=== PATIENT | female | born 1945 | race Caucasian/White ===

== ENCOUNTER 2017-02-09 21:57 | Inpatient (IN) | payer OTHER ==
[~2017-02-09] VITALS: Ht 154.9 cm; Wt 57.2 kg
--- NOTE | ~2017-02-09 | HC ---
[facility] [place] [address] CONSULTATION Name: RACHELLE ROGEL Room #: 439-P ADM IN M.R.#: [id number] Admission: 02/09/17 Attend Phys: Rachid Pemberton MD Discharge: Date of : 41 Report #: [id number] THIS REPORT FOR: //name// CC: Shannon Hair DATE OF SERVICE: 02/10/2017 CONSULTING PHYSICIAN: Gamal Hair MD REASON FOR CONSULTATION: Small-bowel obstruction. HISTORY OF PRESENT ILLNESS: This is a 71-year-old female patient who was seen in [place]'s emergency room with abdominal pain, nausea, and vomiting. The patient recently had similar pain without the nausea and vomiting last Thursday, lasting 2-3 days and subsiding. She was seen in the emergency room with her current complaints where she underwent a CT of the abdomen and pelvis showing changes consistent with a small-bowel obstruction with a transition point in the pelvis, most likely due to adhesions. A sigmoid colon diverticulosis was also identified without acute diverticulitis changes. I have been asked to see the patient for further evaluation and treatment. Since her admission last night, a nasogastric tube was placed and the patient reports improved abdominal pain, denies nausea, vomiting, fever or chills, and has passed flatus on 2 separate occasions earlier this morning. PAST MEDICAL HISTORY: Hypertension and tachycardia. The patient has undergone laparoscopic cholecystectomy, hemorrhoidectomy and gum surgery in the past. MEDICATIONS: Atenolol 25 mg p.o. daily. ALLERGIES: No known drug allergies. FAMILY HISTORY: Reviewed and noncontributory to this hospitalization. SOCIAL HISTORY: The patient denies use of tobacco, alcohol, or illicit drugs. She is accompanied by her . REVIEW OF SYSTEMS: As per history of present illness. In addition: GENERAL: The patient denies fever or chills. She reports mild weight loss with poor appetite. HEENT: Denies changes in taste, vision, hearing, or smell. RESPIRATORY: Denies shortness of breath, COPD, or asthma. CARDIOVASCULAR: Denies chest pain or palpitations. GASTROINTESTINAL: As per history of present illness. Denies bright red blood per rectum. Had multiple colonoscopies in the past, but denies colonic [facility] [address] [place] [address] CONSULTATION Name: RACHELLE ROGEL YUKO Room #: 439-P [facility] IN M.R.#: [id number] Admission: 02/09/17 Attend Phys: Rachid Pemberton MD Discharge: Date of : 41 Report #: [id number] polyposis. GENITOURINARY: Denies dysuria, urgency, increased urinary frequency, or hematuria. MUSCULOSKELETAL: Denies myalgia, arthralgia, or arthritis. NEUROLOGIC: Denies headaches, numbness, or tingling. PSYCHIATRIC: Denies depression, anxiety, or suicidal ideations. SKIN AND INTEGUMENTARY: Denies new skin lesions, rashes, or moles. ENDOCRINE: Denies polydipsia, polyuria, heat or cold intolerance. HEMATOLOGIC: Denies easy bleeding, bruising, or anemia. All other review of systems is negative. PHYSICAL EXAMINATION: VITAL SIGNS: Temperature 98.6, blood pressure 133/75, pulse 78, and respirations 20. GENERAL: This is a well-developed, well-nourished, friendly and cooperative 71-year-old female patient, in no acute distress. HEENT: Atraumatic, normocephalic with moist mucosal membranes. Oropharynx is clear. She has no scleral icterus. A nasogastric tube is in place. NECK: Supple, no appreciable lymphadenopathy. Trachea is midline. CHEST: Clear bilaterally. No crackles or wheezes. CARDIOVASCULAR: Regular rate and rhythm, S1, S2. ABDOMEN: Soft and nondistended with minimal tenderness to palpation in the lower abdomen. She has no rebound or guarding. No palpable masses. No appreciable hernias. Her surgical scars are well healed with no associated hernias. GENITOURINARY: Normal external female genitalia. EXTREMITIES: No clubbing, cyanosis, or edema. NEUROLOGIC: Cranial nerves 2-12 are grossly intact. PSYCHIATRIC: Normal mood and affect. SKIN AND INTEGUMENTARY: No acute inflammatory changes, rashes or lesions are present. LABORATORY DATA: CBC from this morning shows a white blood cell count of 11.8, hemoglobin 13.1, hematocrit 39.1, and platelets 271. Her initial CBC showed an elevated white blood cell count of 17.2. Electrolytes show sodium 140, potassium 4.0, chloride 104, CO2 of 29, BUN 6, creatinine 0.6, and glucose 127. Lactate was normal at 1.8 last night. RADIOLOGIC STUDIES: CT of the abdomen and pelvis showed multiple dilated fluid filled loops of small-bowel within the lower abdomen and central pelvis with apparent transition point in the pelvis consistent with a small-bowel obstruction. A small amount of free fluid was present within the dependent pelvis. Severe colonic diverticulosis was also seen, greatest in the sigmoid colon with no evidence for acute diverticulitis. There was no free air seen. No lymphadenopathy. [address] [address] CONSULTATION Name: RACHELLE ROGEL Room #: 439-P ADM IN M.R.#: [id number] Admission: 02/09/17 Attend Phys: Rachid Pemberton MD Discharge: Date of : 41 Report #: [id number] IMPRESSION AND PLAN: This is a 71-year-old female patient with a history of hypertension who has a small-bowel obstruction. We discussed the pathophysiology and natural history of bowel obstructions as well as treatment alternatives and surgical options. Continue conservative care with bowel rest, IV fluid resuscitation, and nasogastric decompression. I will follow along with serial abdominal exams as well as labs and x-rays as necessary. The patient will undergo an x-ray tomorrow morning. I sincerely appreciate the opportunity to participate in the care of this patient and we will leave further recommendations and orders in the electronic medical record as appropriate. <ELECTRONICALLY SIGNED> By: Gamal Hair MD, FACS 02/11/17 [id number] Gamal Hair MD, FACS /nt
[~2017-02-09 21:57] MED LIST: ATENOLOL 25 MG25 M1 PO; MECLIZINE 25 MG25 M1 PO
[2017-02-09 21:59] VITALS: BP 120/90
[2017-02-09 22:58] LABS: HEMOGLOBIN 15.4 gm/dL (12.0-15.0); MCH 31.6 pg (26.0-34.0); MCHC 34.1 g/dL (28.0-37.0); MCV 92.7 fL (80.0-100.0); PLATELET COUNT 300 thou/uL (150-400); RBC 4.86 mil/uL (4.20-5.00); RDW 12.9 % (10.5-14.5); WBC 17.2 thou/uL (4.0-11.0)
[2017-02-09 23:03] LABS: MANUAL DIFF YES
[2017-02-09 23:05] LABS: CALCIUM 9.9 mg/dL (8.5-10.1); POTASSIUM 3.7 mmol/L (3.5-5.1)
[2017-02-09 23:11] LABS: ALBUMIN 3.6 g/dL (3.4-5.0); DIRECT BILIRUBIN 0.1 mg/dL (<0.1-0.3); TOTAL BILIRUBIN 0.5 mg/dL (<0.1-1.0); TOTAL PROTEIN 9.1 g/dL (6.4-8.2)
[2017-02-09 23:42] LABS: ABSOLUTE NEUTROPHILS 15.5 thou/uL (1.4-8.2); TOTAL CELL COUNT 100
[2017-02-10] VITALS (7 sets, daily range): BP systolic 128–148; BP diastolic 66–96
[2017-02-10 03:50] LABS: HEMATOCRIT 39.1 % (37.0-47.0); HEMOGLOBIN 13.1 gm/dL (12.0-15.0); MCH 31.1 pg (26.0-34.0); MCHC 33.6 g/dL (28.0-37.0); MCV 92.6 fL (80.0-100.0); RBC 4.22 mil/uL (4.20-5.00); RDW 12.4 % (10.5-14.5); WBC 11.8 thou/uL (4.0-11.0)
[2017-02-10 04:02] LABS: CREATININE 0.6 mg/dL (0.6-1.0)
[2017-02-11 04:50] VITALS: BP 153/86
[2017-02-11 05:47] LABS: ALBUMIN 2.5 g/dL (3.4-5.0); CALCIUM 8.3 mg/dL (8.5-10.1); CREATININE 0.7 mg/dL (0.6-1.0); MAGNESIUM 2.2 mg/dL (1.8-2.4); PHOSPHORUS 3.1 mg/dL (2.5-4.9); POTASSIUM 3.8 mmol/L (3.5-5.1)
[2017-02-11 08:00] VITALS: BP 149/73
[2017-02-11 14:55] VITALS: BP 140/76
[2017-02-11 20:00] VITALS: BP 143/69
[2017-02-12 03:58] VITALS: BP 144/82
[2017-02-12 07:22] LABS: ALBUMIN 2.6 g/dL (3.4-5.0); CALCIUM 8.4 mg/dL (8.5-10.1); CREATININE 0.6 mg/dL (0.6-1.0); MAGNESIUM 2.1 mg/dL (1.8-2.4); PHOSPHORUS 3.3 mg/dL (2.5-4.9); POTASSIUM 3.4 mmol/L (3.5-5.1)
[2017-02-12 08:00] VITALS: BP 129/63
[2017-02-12 16:00] VITALS: BP 145/85
[2017-02-12 20:45] VITALS: BP 146/72
[2017-02-13 04:06] VITALS: BP 136/79
[2017-02-13 07:23] VITALS: BP 144/84
[2017-02-13 11:33] VITALS: BP 144/84
[2017-02-13 15:25] VITALS: BP 144/84
== END 2017-02-13 14:30 | disposition home or self-care (01) | DRG 388 ==
LOC: ER 21:57 → EROBS 23:53 → 4S 23:53 → ENTRNSPT 02-13 13:43 → EDTRNSPTSTS 02-13 13:57 → 4S 02-13 14:30
PROVIDERS: Hospitalist; Nurse Practitioner
DX: K56.60 Unspecified intestinal obstruction (principal); N17.0 Acute kidney failure with tubular necrosis; E86.0 Dehydration; I10 Essential (primary) hypertension; D72.829 Elevated white blood cell count, unspecified; Z88.6 Allergy status to analgesic agent; Z90.49 Acquired absence of other specified parts of digestive tract
CPT/HCPCS: 10195